=== PATIENT | female | born 1945 | race Caucasian/White ===

== ENCOUNTER 2017-12-12 06:09 | Emergency (ER) | payer MEDICARE, OTHER ==
[2017-12-12] MEDS: IBUPROFEN 800 MG TAB PO (06:44)
== END 2017-12-12 08:22 | disposition home or self-care (01) ==
LOC: FTE 06:09
DX: R07.89 Other chest pain (principal); I10 Essential (primary) hypertension; Z79.82 Long term (current) use of aspirin
CPT/HCPCS: 71045; 71120; 99283-25